=== PATIENT | female | born 1985 | race Caucasian/White ===

== ENCOUNTER 2016-10-05 00:50 | Emergency (ER) | payer BC, OTHER ==
[~2016-10-05] VITALS: Ht 162.6 cm; Wt 105.5 kg
[~2016-10-05 00:50] MED LIST: AUG875 PO; HYDR-3498 PO; IBUP-1542 PO; ORPH100T PO
[2016-10-05 01:03] VITALS: Ht 162.6 cm; Wt 105.5 kg
--- NOTE | 2016-10-05 01:40 | ERD ---
ER Documentation Chief Complaint Date/Time DATE: 10/05/16 TIME: 01:38 Chief Complaint toothache HPI This is a 31-year-old female presents to the emergency room for evaluation of a toothache. The patient states that she has had a toothache on and off for the past 2 years. She does state that she has a dental cavity and is supposed of a root canal however her insurance will not cover it. The patient denies any fevers, numbness or tingling in her face and came to the ER today for evaluation. Susan has not been working for her pain ROS All systems reviewed and are negative except as per history of present illness. Medications Home Meds Active Scripts Orphenadrine Citrate (Norflex) 100 Mg Tablet.sa, 100 MG PO BID for 3 Days, TAB.SA Prov:VANGIE BERNARDO 07/14/16 Ibuprofen* (Motrin*) 600 Mg Tab, 600 MG PO Q6, #30 TAB Prov:VANGIE BERNARDO 07/14/16 Hydrocodone Bit-Acetaminophen* ([place]*) 5-325 Mg Tab, 1 TAB PO Q6 Y for PAIN, # 10 TAB Prov:LENNY POLLOCK NP 04/26/15 Ibuprofen* (Ibuprofen*) 600 Mg Tablet, 600 MG PO Q6H Y for PAIN, #30 TAB Prov:LENNY POLLOCK NP 04/26/15 Amoxicillin-Clavulanate K* (Augmentin*) 875 Mg Tab, 875 MG PO BID for 10 Days Prov:LENNY POLLOCK NP 04/26/15 Allergies Allergies: Coded Allergies: No Known Allergy (Unverified , 03/16/14) PMhx/Soc Hx Alcohol Use: No Hx Substance Use: No Hx Tobacco Use: No Physical Exam Vitals Vital Signs Date Time Temp Pulse Resp B/P Pulse Ox O2 Delivery O2 Flow Rate FiO2 10/05/16 01:03 97.7 72 20 117/79 99 Physical Exam Const: No acute distress Head: Atraumatic Eyes: Normal Conjunctiva ENT: Dental cavity at left premolar upper, normal External Ears, Nose and Mouth. Neck: Full range of motion..~ No meningismus. Resp: Clear to auscultation bilaterally Cardio: Regular rate and rhythm, no murmurs Abd: Soft, non tender, non distended. Normal bowel sounds Skin: No petechiae or rashes Back: No midline or flank tenderness Ext: No cyanosis, or edema Neur: Awake and alert Psych: Normal Mood and Affect Procedures/MDM This 31-year-old female presents to the emergency room for evaluation of dental pain. Patient does have a dental Jojo in the left upper premolar tooth. This patient was given [place] and penicillin V potassium in the emergency room. She will be discharged home with a prescription for Amol Case Departure Diagnosis: Primary Impression: Dental caries Condition: Stable KRYSTINA QUINONES DO Oct 05, 2016 01:40
[2016-10-05] MEDS ORDERED: HYDR-906 PO (01:41)
[2016-10-05] MEDS ORDERED: PEN500 PO (01:41)
[2016-10-05] MEDS ORDERED: PENICILLIN V K 250 MG TAB PO ONE (02:00)
[2016-10-05] MEDS ORDERED: HYDROCODONE/APAP (10/325) TAB PO ONE (02:00)
== END 2016-10-05 02:45 | disposition home or self-care (01) ==
LOC: E/R 00:50
DX: K02.9 Dental caries, unspecified (principal)
CPT/HCPCS: Z7502; Z7610; 99284